=== PATIENT | female | born 1995 | race Hispanic/Latino ===

== ENCOUNTER 2019-03-21 14:29 | Emergency (ER) | payer SELFPAY ==
[2019-03-21] MEDS ORDERED: SIMETHICONE 80 MG TAB.CHEW ONE (14:45)
[2019-03-21] MEDS ORDERED: ONDANSETRON ODT 4 MG TAB ONE (14:46)
[2019-03-21] MEDS ORDERED: DICYCLOMINE HCL 20 MG TAB ONE (14:46)
== END 2019-03-21 15:42 | disposition home or self-care (01) ==
LOC: EDH 14:29
DX: R19.7 Diarrhea, unspecified (principal); R11.0 Nausea